=== PATIENT | female | born 1985 | race Caucasian/White ===

== ENCOUNTER 2020-02-05 10:53 | Outpatient (CLI) | payer BC ==
--- NOTE | 2020-02-05 13:59 | CT ---
CT abdomen with and without contrast: CT pelvis with and without contrast: 02/05/2020 HISTORY: 34-year-old female with right-sided abdominal pain. COMPARISON: None FINDINGS: Diffusely low hepatic attenuation represents fatty liver. No portal vein thrombosis, biliary ductal d ilation, or solid or cystic hepatic mass. Clips in gallbladder fossa. Pancreas, adrenals, spleen, abdominal aorta, appendix, demonstrate no abnormality. A few tiny subcentimeter focal round hypodensities in the bilateral renal parenchyma, at least 2 in t he right upper pole and one in the left upper pole, too small to characterize, but statistically most likely represent tiny cysts. No evidence of pyelonephritis. No hydronephrosis. No small bowel dilation, ascites, pneumoperitoneum, adnexal pelvic mass, or colonic diverticulitis. L kerry bases are clear. No destructive osseous lesion. IMPRESSION: 1.) Hepatic steatosis. 2.) Status post cholecystectomy. 3) otherwise negative
== END 2020-02-05 10:54 | disposition home or self-care (01) ==
LOC: SCSCT 10:53
PROVIDERS: ATTEND Family Medicine
DX: R10.9 Unspecified abdominal pain (principal); K76.0 Fatty (change of) liver, not elsewhere classified; Z90.49 Acquired absence of other specified parts of digestive tract
CPT/HCPCS: 74178

== ENCOUNTER 2020-03-02 09:08 | Outpatient (CLI) | payer BC ==
--- NOTE | 2020-03-02 10:44 | RAD ---
Upper GI air contrast HISTORY: Upper abdomen pain. FINDINGS: Air contrast and single column barium evaluation shows a very small sliding hiatal hernia. Moderate amount of gastroesophageal reflux. Normal anatomic appearance of the stomach and duodenum. There is significantly decreased peristalsis of the stomach. No evidence of gastric outlet obstruction. No focal mass or ulceration. IMPRESSION : Small sliding hiatal hernia with moderate amount of gastroesophageal reflux. Prominent hypomotility of the stomach.
== END 2020-03-02 09:09 | disposition home or self-care (01) ==
LOC: RAD 09:08
PROVIDERS: ATTEND Internal Medicine Gastroenterology
DX: R10.9 Unspecified abdominal pain (principal); K76.0 Fatty (change of) liver, not elsewhere classified; R12 Heartburn; K44.9 Diaphragmatic hernia without obstruction or gangrene; K21.9 Gastro-esophageal reflux disease without esophagitis; K31.89 Other diseases of stomach and duodenum
CPT/HCPCS: 74246

== ENCOUNTER 2020-03-16 07:28 | Outpatient (CLI) | payer BC ==
--- NOTE | 2020-03-16 11:59 | NM ---
Radionucleotide gastric emptying scan HISTORY: Abdominal pain. Gastroparesis. FINDINGS: 2 mCi technetium 99m sulfur colloid in scrambled eggs. Planar images show good mixing of radiotracer. Half life emptying calculated at 33 minutes. 30 minutes 48% empty 60 minutes 65% empty 2 hours 89% empty 3 hours 90% empty IMPRESSION : Normal exam. Good gastric emptying.
== END 2020-03-16 07:29 | disposition home or self-care (01) ==
LOC: NM 07:28
PROVIDERS: ATTEND Internal Medicine Gastroenterology
DX: R10.9 Unspecified abdominal pain (principal)
CPT/HCPCS: 78264; A9541

== ENCOUNTER 2025-03-06 11:00 | Outpatient (CLI) | payer BC | END 2025-03-06 11:01 | disposition home or self-care (01) | LOC: SCSMRI 11:00 | PROVIDERS: ATTEND Family Medicine | DX: R27.0 Ataxia, unspecified (principal) | CPT/HCPCS: 70553; 76376 ==